=== PATIENT | male | born 1980 | race Caucasian/White ===

== ENCOUNTER → 2018-09-02 | Day surgery (SDC) | payer SELFPAY ==
[~2018-09-02] MED LIST: Lactated Ringers 1,000 ML IV SCH; Lidocaine 1% 0 ML ONE; Lidocaine 1%/Sod Bicarbonate in NS 8.4% 1 ML Syringe IDERM PRN; Midazolam 1 MG/ML 2 ML SDV ONE; Propofol 200 MG/20 ML SDV ONE; Rocuronium 50 MG/5 ML Vial ONE; Sodium Chloride 0.9% 10 ML Syringe FLUSH PRN; ceFAZolin 1 GM Vial ONE; fentaNYL 250 MCG/5 ML SDV ONE
--- NOTE | 2018-09-02 11:29 | PCM.SN ---
- Free Text/Narrative Note: Loc presented to same day surgery today for an laparoscopic bilateral hernia repair with mesh. His admission vital signs were BP: 161/116 and HR: 125. Repeat BP were obtained and he remains hypertensive. An EKG showed Sinus Tachycardia at 122 bpm with Left atrial hypertrophy and Left ventricular hypertrophy pattern. Loc has a history of Drug Abuse Cocaine, Methamphetamines, Marijuana. I explained to him the dangerous effects of anesthesia and elicit drugs use. Loc admits to using methamphetamines yesterday and has felt his heart racing ever since that time. Dr. Durham was notified and recommended to reschedule when Loc is not under the influence of methamphetamines. She recommends a minimum of one week prior to rescheduling his procedure. Loc is requesting a clonazepam prior to leaving. Dr. Durham does not wish to prescribe this medication and the patient was offered the choice to go to the emergency room if he is needing additional support. Loc has verbalized understanding at this time and will call her clinic next week to reschedule his procedure.
== END ==
LOC: JD.SDS 08:50
PROVIDERS: ATTEND Surgery
DX: K40.20 Bilateral inguinal hernia, without obstruction or gangrene, not specified as recurrent (principal); Z53.8 Procedure and treatment not carried out for other reasons
CPT/HCPCS: 93005; J7120; J0690; J2001; J2250; J2704; J3010

== ENCOUNTER 2018-09-23 08:00 | Day surgery (SDC) | payer SELFPAY ==
[~2018-09-23 08:00] MED LIST changes: +Dexamethasone 4 MG/ML SDV ONE; +HYDROmorphone 0.5 MG/0.5 ML Syringe ONE; +Ketorolac 30 MG/ML SDV ONE; +Lactated Ringers 1,000 ML ONE; -Lidocaine 1% 0 ML ONE; +Lidocaine 1% 6 ML ONE; +Ondansetron 4 MG/2 ML SDV ONE
--- NOTE | 2018-09-23 08:40 | PCM.PREANE ---
Preanesthetic Assessment - Procedure Proposed Procedure: Laparoscopic bilateral inguinal hernia repair with mesh - Anesthesia/Transfusion/Family Hx Anesthesia History: Prior Anesthesia Without Reaction (wisdom teeth extration 20 years ago and woke up angry) Family History of Anesthesia Reaction: No Transfusion History: No Prior Transfusion(s) - Review of Systems General: No Symptoms Pulmonary: Cough (Patient stated he recently got over a cold and has some sinus congestion with a nonproductive cough. ) Cardiovascular: Other (borderline hypertension ) Gastrointestinal: Other (Pt had trouble with GERD in the past but has since quit taken ibuprofen and now has not had problems for a few months. ) Neurological: No Symptoms Other: Reports: None - Physical Assessment NPO Status Date: 09/23/18 NPO Status Time: 00:05 Pulse: 77 O2 Sat by Pulse Oximetry: 100 Respiratory Rate: 16 Blood Pressure: 138/93 Temperature: 36.1 C Vital Signs: Last Vital Signs Temp 36.1 C 09/23/18 08:05 Pulse 77 09/23/18 08:05 Resp 16 09/23/18 08:05 BP 138/93 H 09/23/18 08:05 Pulse Ox 100 09/23/18 08:05 Height: 1.88 m Weight: 78.471 kg ASA Class: 2 Mental Status: Alert & Oriented x3 Airway Class: Mallampati = 2 Dentition: Reports: Normal Dentition (patient does have some significant unfixed dental caries ) Thyro-Mental Finger Breadths: 3 Mouth Opening Finger Breadths: 3 ROM/Head Extension: Full Lungs: Clear to Auscultation, Normal Respiratory Effort Cardiovascular: Regular Rate, Regular Rhythm - Lab Values: Patient had a urine drug screen today and amphetamines and marijuana come back positive. Patient stated he has not recreational drug use since the last time he was here about 09-01-18. Amphetamine positive could have been from taking Sudafed recently for sinus congestion which he admitted to. Dr Durham aware of these results. - Allergies Allergies/Adverse Reactions: Allergies Allergy/AdvReac Type Severity Reaction Status Date / Time No Known Allergies Allergy Verified 09/22/18 13:15 - Blood Blood Available: No Product(s) Available: None - Anesthesia Plan Pre-Op Medication Ordered: None - Acknowledgements Anesthesia Type Planned: General Anesthesia Pt an Appropriate Candidate for the Planned Anesthesia: Yes Alternatives and Risks of Anesthesia Discussed w Pt/Guardian: Yes Pt/Guardian Understands and Agrees with Anesthesia Plan: Yes PreAnesthesia Questionnaire HEENT History: Reports: Impaired Vision Cardiovascular History: Reports: Hypertension Respiratory History: Reports: None Gastrointestinal History: Reports: None Genitourinary History: Reports: None DRY CHAIN OFFBEARER History: Reports: None Musculoskeletal History: Reports: Back Pain, Chronic, Other (See Below) Other Musculoskeletal History: left sided sciatica Neurological History: Reports: Neuropathy, Peripheral Psychiatric History: Reports: ADHD Endocrine/Metabolic History: Reports: None Hematologic History: Reports: None Immunologic History: Reports: None Oncologic (Cancer) History: Reports: None Dermatologic History: Reports: None - Past Surgical History Head Surgeries/Procedures: Reports: None HEENT Surgical History: Reports: Eye Surgery, Oral Surgery Cardiovascular Surgical History: Reports: None Respiratory Surgical History: Reports: None GI Surgical History: Reports: None Female Surgical History: Reports: None Male Surgical History: Reports: None Endocrine Surgical History: Reports: None Neurological Surgical History: Reports: None Oncologic Surgical History: Reports: None Dermatological Surgical History: Reports: None - SUBSTANCE USE Smoking Status *Q: Current Some Day Smoker (for the last 19 years) Recreational Drug Use History: Yes Recreational Drug Type: Reports: Codiene, Marijuana/Hashish (last used 09/01/18 per patient), Methamphetamine (last used 09/01/18 per patient) - HOME MEDS Home Medications: Home Meds Dextroamphetamine/Amphetamine [Adderall 10 mg Tablet] 15 mg PO QID 09/01/18 [ History] Ibuprofen 600 mg PO Q6H PRN 09/01/18 [History] clonazePAM [Klonopin] 1 mg PO DAILY PRN 09/01/18 [History] - CURRENT (IN HOUSE) MEDS Current Meds: Current Medications Lactated Ringer's (Ringers, Lactated) 1,000 mls @ 125 mls/hr IV ASDIRECTED BRIDGETTE Stop: 09/23/18 23:00 Lidocaine/Sodium Bicarbonate (Buffered Lidocaine 1% In Ns 8.4%) 0.25 ml IDERM ONETIME PRN PRN Reason: Prior to IV Start Stop: 09/23/18 18:00 Sodium Chloride (Saline Flush) 10 ml FLUSH ASDIRECTED PRN PRN Reason: Keep Vein Open Stop: 09/23/18 18:00 Discontinued Medications Cefazolin Sodium (Ancef) Confirm Administered Dose 2 gm .ROUTE .STK-MED ONE Stop: 09/23/18 07:16 Dexamethasone (Dexamethasone) Confirm Administered Dose 4 mg .ROUTE .ST-MED ONE Stop: 09/23/18 07:16 Fentanyl (Sublimaze) Confirm Administered Dose 250 mcg .ROUTE .STK-MED ONE Stop: 09/23/18 07:17 Hydromorphone HCl (Dilaudid) Confirm Administered Dose 0.5 mg .ROUTE .ST-MED ONE Stop: 09/23/18 07:18 Lidocaine HCl (Xylocaine-Mpf 1%) Confirm Administered Dose 6 mls @ as directed .ROUTE .ST-MED ONE Stop: 09/23/18 07:16 Lactated Ringer's (Ringers, Lactated) Confirm Administered Dose 1,000 mls @ as directed .ROUTE .[facility]-MED ONE Stop: 09/23/18 07:16 Acetaminophen (Ofirmev) 65 mls @ 400 mls/hr IV NOW ONE Stop: 09/23/18 08:02 Last Admin: 09/23/18 08:32 Dose: 400 mls/hr Ketorolac Tromethamine (Toradol) Confirm Administered Dose 30 mg .ROUTE .ST- MED ONE Stop: 09/23/18 07:16 Midazolam HCl (Versed 1 Mg/Ml) Confirm Administered Dose 2 mg .ROUTE .ST-MED ONE Stop: 09/23/18 07:17 Ondansetron HCl (Zofran) Confirm Administered Dose 4 mg .ROUTE .STK-MED ONE Stop: 09/23/18 07:16 Propofol (Diprivan 20 Ml) Confirm Administered Dose 200 mg .ROUTE .STK-MED ONE Stop: 09/23/18 07:16 Rocuronium [place] (Zemuron) Confirm Administered Dose 50 mg .ROUTE .STK-MED ONE Stop: 09/23/18 07:16
[2018-09-23] MEDS ORDERED: Bupivacaine 0.5%/EPINEPHrine 1:200,000 50 ML MDV ONE (09:08)
[2018-09-23] MEDS ORDERED: Lidocaine 1% with EPINEPHrine 1:100,000 20 ML MDV ONE (09:08)
[2018-09-23] MEDS ORDERED: Propofol 200 MG/20 ML SDV ONE (09:22)
[2018-09-23] MEDS ORDERED: ePHEDrine/Normal Saline 25 MG/5 ML Syringe ONE (09:41)
[2018-09-23] MEDS ORDERED: Ondansetron 4 MG/2 ML SDV IVPUSH PRN (09:43)
[2018-09-23] MEDS ORDERED: diphenhydrAMINE 50 MG/ML SDV IVPUSH PRN (09:43)
[2018-09-23] MEDS ORDERED: Midazolam 1 MG/ML 2 ML SDV IVPUSH PRN (09:43)
[2018-09-23] MEDS ORDERED: HYDROmorphone 0.5 MG/0.5 ML Syringe IVPUSH PRN (09:43)
[2018-09-23] MEDS ORDERED: fentaNYL 100 MCG/2 ML SDV IVPUSH PRN (09:43)
[2018-09-23] MEDS ORDERED: ePHEDrine 50 MG/ML SDV IVPUSH PRN (09:43)
[2018-09-23] MEDS ORDERED: Phenylephrine 1 MG in Sodium Chloride 0.9% 10 ML IV SCH (09:45)
[2018-09-23] MEDS ORDERED: Neostigmine Methylsulfate 1 MG/ML 5 ML Syringe ONE (09:59)
[2018-09-23] MEDS ORDERED: HYDROmorphone 0.5 MG/0.5 ML Syringe ONE (10:33)
--- NOTE | 2018-09-23 11:15 | PCM.OPNOTE ---
- General Post-Op/Procedure Note Date of Surgery/Procedure: 09/23/18 Operative Procedure(s): laparoscopic left inguinal hernia repair with mesh Findings: left indirect inguinal hernia Pre Op Diagnosis: left inguinal hernia Post-Op Diagnosis: same Anesthesia Technique: General ET Tube Primary Surgeon: Bhavani Wagner Anesthesia Provider: No Willard Ends Breakage Clerk: Darby Campbell Reason Ends Breakage Clerk Was Necessary: PA student present for education and assistance Pathology: none Fluid Replacement, Intraop: 1,000 Output, Urine Amount: 0 EBL in mLs: 5 Complications: none apparent Condition: Good
--- NOTE | 2018-09-23 11:16 | PCM.PRNOTE ---
- Free Text/Narrative Note: Operative Report Date of surgery: September 23, 2018 Preoperative diagnosis: , Left Inguinal hernia Postoperative diagnosis: same Procedure performed: 1. Diagnostic laparoscopy. 2. Laparoscopic left inguinal hernia repair with mesh Surgeon: Dr. Bhavani aWgner Anesthesia: General ET Ostomy Nurse: No Willard CRNA Estimated blood loss: 5 mL IV fluids:1000mL Urine output:0 mL, patient voided prior to the start of the procedure Drains and lines: None Indication for the procedure: The patient is a 38-year-old gentleman who presented to my office with complaint of a symptomatic left inguinal hernia. He also had symptoms consistent with sciatic nerve pain. We discussed a procedure of a laparoscopic left inguinal hernia repair with mesh with the patient. We is jocelynn that this would not relieve all of his pain symptoms as he had more than one reason to have pain. We discussed that he might have bilateral hernia which time we would fix both during the surgery. Risks of infection, bleeding and mesh complication was reviewed, and written consent was obtained Description of the procedure: The patient presented to the outpatient holding area on the day for procedure history and physical were verified and the consent was present and on the chart. He was taken back to the operating room and placed in supine position on the operating table. SCD boots were placed and functional prior to the service procedure. The patient received preoperative antibiotics as per SCIP protocol. The patient had successful induction of general anesthesia and was intubated without difficulty. The patient's arms were tucked and the pressure points were padded. The patient was prepped and draped in standard surgical fashion and a timeout was performed. The abdomen was draped with Ioban to begin. A 5 mm incision was then made in the left upper quadrant just under the subcostal margin. A 5 mm port was then inserted into the abdomen with the Visiport technique. The abdomen was insufflated to 15 mmHg. There was no evidence of any injury in the area where we had entered the abdomen. We proceeded to place a TAP block with mixed 1% lidocaine with epinephrine and 0.5% bupivacaine with epinephrine. We then surveyed the area of hernias in bilateral lower quadrants. There was a left inguinal hernia, with no evidence of a right inguinal hernia. The abdomen was desufflated with the [address] left in place as a venting port. We proceeded to make an infraumbilical incision on the left side of the midline down to the level of the anterior rectus sheath. An incision was made through the anterior sheath and the rectus muscles were bluntly swept aside to expose the posterior sheath. The balloon dissector was then placed in to this area and extended down to the pelvis. The balloon dissector was then inflated while visualizing the dissection. Once we had sufficiently greater blunt dissection, the balloon was removed and the balloon port was then inflated to hold the port in place. Insufflation was attached and we inserted a camera to inspect the area. We proceeded to place two 5mm ports in the infraumbilical midline. We then turned our attention to the area of the hernia. There was a direct inguinal hernia defect. We then proceeded to dissect the hernia sac away from the spermatic cord. Care was taken to protect the spermatic cord structures , and we had good exposure and dissection for placement of the mesh A large left-sided hernia mesh was then rolled and placed into the dissection cavity. It was tacked laterally to the abdominal wall and medially to Jona's ligament and the rectus abdominis. We had good coverage over the hernia defect. The infraumbilical space was then desufflated and the abdomen was reinsufflated. The mesh was completely covered with peritoneum. The abdomen was then desufflated and the ports were removed. There was a 3-4 mm hernia defect directly adjacent to our fascial defect. This was sutured closed, as well as the fascial defect using an 0 Vicryl suture. The incision sites were then closed with 4-0 Monocryl suture. Dermabond surgical glue were used to cover the incisions. The patient tolerated the procedure well and was transported to the PACU in stable condition. All sponge and needle counts correct. Complications: None apparent. Disposition: Stable to PACU Bhavani Wagner MD General Surgery
--- NOTE | 2018-09-23 11:43 | PCM.POSTAN ---
POST ANESTHESIA ASSESSMENT - MENTAL STATUS Mental Status: Alert - VITAL SIGNS Pulse Rate: 71 SaO2: 95 (2LPM nasal cannula) Resp Rate: 8 Blood Pressure: 132/69 Temperature: 36.8 C - RESPIRATORY Respiratory Status: Respiratory Rate WNL, Airway Patent, O2 Saturation Stable, Supplemental Oxygen - CARDIOVASCULAR CV Status: Pulse Rate WNL, Blood Pressure Stable - GASTROINTESTINAL GI Status: No Symptoms - POST OP HYDRATION Hydration Status: Adequate & Stable
--- NOTE | 2018-09-23 13:14 | PCM48HPAN ---
Post Anesthesia Note - EVALUATION WITHIN 48HRS OF ANESTHETIC Vital Signs in Normal Range: Yes Patient Participated in Evaluation: Yes Respiratory Function Stable: Yes Airway Patent: Yes Cardiovascular Function Stable: Yes Hydration Status Stable: Yes Pain Control Satisfactory: Yes Nausea and Vomiting Control Satisfactory: Yes Mental Status Recovered: Yes
== END 2018-09-23 14:44 | disposition home or self-care (01) ==
LOC: JD.SDS 08:00
PROVIDERS: ATTEND Surgery
DX: K40.90 Unilateral inguinal hernia, without obstruction or gangrene, not specified as recurrent (principal); I10 Essential (primary) hypertension; K21.9 Gastro-esophageal reflux disease without esophagitis; G89.29 Other chronic pain; M54.9 Dorsalgia, unspecified; F17.200 Nicotine dependence, unspecified, uncomplicated; Z79.899 Other long term (current) drug therapy
CPT/HCPCS: 49650; 80306; G0480; J0131; J0690; J1100; J1170; J1885; J2001; J2250; J2405; J2704; J2710; J3010; J3490; J7050; J7120; 00840; C1781